=== PATIENT | female | born 1995 | race African-American/Black ===

== ENCOUNTER 2017-10-06 22:03 | Emergency (ER) | payer MEDICAID ==
[~2017-10-06] VITALS: Ht 170.2 cm; Wt 73.0 kg
[2017-10-06] MEDS ORDERED: IBUPROFEN 600MG TABLET PO ONE (23:30)
[2017-10-07 01:11] VITALS: BP 120/81
== END 2017-10-07 01:10 | disposition home or self-care (01) ==
LOC: ER 22:03
DX: M25.512 Pain in left shoulder (principal); V49.9XXA Car occupant (driver) (passenger) injured in unspecified traffic accident, initial encounter; Y93.9 Activity, unspecified; Y92.410 Unspecified street and highway as the place of occurrence of the external cause
CPT/HCPCS: 73030; 81025; 99284; Z7610; A4565